=== PATIENT | female | born 1990 | race Caucasian/White ===

== ENCOUNTER 2019-01-25 13:14 | Inpatient (IN) ==
[2019-01-25 14:07] LABS: URINE SOURCE VOIDED
[2019-01-25 14:13] LABS: BILIRUBIN URINE NEGATIVE (NEGATIVE); BLOOD URINE 4+ (NEGATIVE); CLARITY CLEAR (CLEAR); COLOR YELLOW; GLUCOSE URINE NEGATIVE (NEGATIVE); KETONE URINE 2+(Moderate) mg/dL (NEGATIVE); LEUKOCYTES URINE 1+ (NEGATIVE); NITRITE URINE NEGATIVE (NEGATIVE); PH URINE 6.5; PROTEIN URINE 1+(30 mg/dL) mg/dL (NEGATIVE); UROBILINOGEN URINE NORMAL
[2019-01-25] MEDS ORDERED: PEPCID PO ONE (14:33)
[2019-01-25] MEDS ORDERED: KEFZOL 1 GM/D5W 1 GM/50 ML IVPB IV PRN (14:33)
[2019-01-25] MEDS ORDERED: ZOFRAN IV PRN (14:33)
[2019-01-25] MEDS ORDERED: REGLAN PO ONE (14:33)
[2019-01-25] MEDS ORDERED: PEPCID PO PRN (14:33)
[2019-01-25] MEDS ORDERED: AMPICILLIN 2 GM/NS 2 GM/100 ML IVPB IV ONE (14:33)
[2019-01-25] MEDS ORDERED: LR 500 ML IV ONE (14:33)
[2019-01-25] MEDS ORDERED: TYLENOL PO PRN (14:33)
[2019-01-25] MEDS ORDERED: PEPCID IV PRN (14:33)
[2019-01-25] MEDS ORDERED: STADOL IV PRN (14:33)
[2019-01-25] MEDS ORDERED: SODIUM CHLORIDE 0.9% INJ SCH (14:45)
[2019-01-25] MEDS ORDERED: PITOCIN 30 UNITS/NS 30 UNIT/500 ML IV.SOLN IV SCH ×2 (14:45→21:00)
[2019-01-25] MEDS: LR 1,000 ML IV SCH ×2 (15:00→15:52)
[2019-01-25 15:18] LABS: BASO# 0.02 X1000 (0.0-0.2); BASO% 0.2 % (0.0-0.8); EOS# 0.09 X1000 (0.0-0.7); EOS% 0.7 % (0.0-10.0); HEMATOCRIT 36.6 % (37.0-47.0); IMM GRAN# 0.07 X1000 (0.0-0.04); IMM GRAN% 0.5 % (0.0-0.5); LYMPH% 15.4 % (20.5-51.1); MCH 26.6 PG (27-31); MCHC 32.8 g/dL (33-37); MCV 81.2 FL (81-99); MONO# 0.95 X1000 (0.11-0.59); MONO% 7.3 % (1.7-9.3); MPV 10.2 FL (7.4-10.4); NEUT# 9.88 X1000 (1.4-6.5); NEUT% 75.9 % (42.2-75.2); PLT 316 X1000 (130-400); RBC 4.51 XMIL (4.2-5.4); RDW 14.3 % (11.5-14.5); WBC 13.01 X1000 (4.8-10.8)
[2019-01-25] MEDS ORDERED: XYLOCAINE-MPF 1% INJ PRN ×2 (15:47→20:58)
[2019-01-25] MEDS ORDERED: MINERAL OIL PO PRN ×2 (15:47→20:58)
[2019-01-25 15:54] LABS: UR AMPHETAMINES QUAL NONE DETECTED (NONE DETECT); UR BARBITUATES QUAL NONE DETECTED (NONE DETECT); UR BENZODIAZEPIN QUAL NONE DETECTED (NONE DETECT); UR CANNABINOIDS QUAL NONE DETECTED (NONE DETECT); UR COCAINE QUAL NONE DETECTED (NONE DETECT); UR METHADONE QUAL NONE DETECTED (NONE DETECT); UR METHAMPHETAMINE QUAL NONE DETECTED (NONE DETECT); UR OPIATES QUAL NONE DETECTED (NONE DETECT); UR OXYCODONE QUAL NONE DETECTED (NONE DETECT); UR PCP QUAL NONE DETECTED (NONE DETECT); UR PROPOXYPHENE QUAL NONE DETECTED (NONE DETECT); UR TCA QUAL NONE DETECTED (NONE DETECT)
[2019-01-25] MEDS ORDERED: FENTANYL-BUPIV-NS 2 MCG-0.1% 250 ML EPIDURAL SCH (16:00)
[2019-01-25] MEDS: MARCAINE 0.25% PF INJ PRN ×2 (16:25→16:28)
[2019-01-25] MEDS ORDERED: AMPICILLIN 1 GM/NS 1 GM/50 ML IVPB IV SCH (18:33)
--- NOTE | 2019-01-25 19:49 | HISTORY AND PHYSICAL ---
HISTORY OF PRESENT ILLNESS: Mrs. Guerrero is a 28-year-old, G2, P0-0-1-0 at 35 weeks and 1 day, who presents to Labor and Delivery with complaint of PPROM, spontaneous rupture of membranes occurring early this morning. The patient reports good movement. Denies contractions or vaginal bleeding. Upon presentation, the patient was found to be grossly ruptured and in early labor at 4 cm dilated and 100% effaced. MEDICATIONS: Metformin a 1000 mg p.o. b.i.d., vitamins 1 tab p.o. daily, glyburide 5 mg p.o. b.i.d. ALLERGIES: No known drug allergies. PAST MEDICAL HISTORY: Type 2 diabetes. SURGICAL HISTORY: Cyst removal from left wrist and wisdom teeth removal. LIGHT BULB TESTER HISTORY: Menarche at age 14. Denies STD exposure. OBSTETRICAL HISTORY: 2, para 0-0-1-0, one miscarriage. FAMILY HISTORY: Mother with hypertension, hyperlipidemia. Grandfather with hypertension and COPD. Grandmother with diabetes. SOCIAL HISTORY: Denies tobacco, alcohol, or drug use. PHYSICAL EXAMINATION: VITAL SIGNS: Temperature 97.5 degrees Fahrenheit, pulse rate 92, respiration rate 20, blood pressure 122/79, O2 sats 98% on room air. Weight 284 pounds, height 5 feet 7 inches, BMI 44.5 kg/m2. GENERAL: No acute distress. Alert, awake, and oriented x3. CARDIOVASCULAR: Regular rate and rhythm. Positive S1, S2. RESPIRATION: Clear to auscultation bilaterally. ABDOMEN: Gravid, nontender to palpation. EXTREMITIES: No calf tenderness. STERILE VAGINAL EXAM: 7 cm dilated, 100% effaced, -1 station. Electronic monitoring category 1 tracing. [place]: Irregular contractions. LABORATORY: WBC 13.01, hemoglobin 12.0, hematocrit 36.6, platelets 316,000, glucose 84. membranes rupture positive. Urine drug screen negative. RPR nonreactive. ASSESSMENT: Mrs. Guerrero is a 28-year-old, G2, P0-0-1-0 at 35 weeks and 1 day, who presents to Labor and Delivery with premature rupture of membranes in early labor. PLAN: 1. Admit to Labor and Delivery. 2. Obtain routine labor labs. 3. Group B strep unknown in . 4. We will start group B strep prophylaxis with ampicillin IV. 5. Continue with monitoring. 6. Estimated weight 6 pounds. 7. Anticipate vaginal delivery. 8. Strategic Partnership Representative requested at delivery. 9. We will monitor blood sugars post delivery. Discussed 2 hour oral glucose tolerance test 6 weeks to confirm type 2 diabetes. 10. I discussed risks of vaginal delivery which includes, but not limited to, bleeding, lacerations, need for blood transfusion and need for emergent section. Risk of sections discussed in depth which include, but not limited to, bleeding, infection, possibly injury to surrounding organs, postoperative pain, , and disability. [facility]
[2019-01-25] MEDS ORDERED: BENADRYL IV PRN (20:58)
[2019-01-25] MEDS ORDERED: HYDROXYZINE IM PRN (20:58)
[2019-01-25] MEDS ORDERED: M-M-R II VACCINE SUBQ ONE (20:58)
[2019-01-25] MEDS ORDERED: ATARAX PO PRN (20:58)
[2019-01-25] MEDS ORDERED: BENADRYL PO PRN (20:58)
[2019-01-25] MEDS ORDERED: PERI MEDS (DERMOPLAST/NUPERCAINAL/TUCKS) MISC PRN (20:58)
[2019-01-25] MEDS ORDERED: CYTOTEC PO PRN (20:58)
[2019-01-25] MEDS ORDERED: BOOSTRIX VACCINE IM ONE (20:58)
[2019-01-25] MEDS ORDERED: PITOCIN IM PRN (20:58)
[2019-01-25] MEDS ORDERED: AMBIEN PO PRN (20:58)
[2019-01-25] MEDS ORDERED: PITOCIN 20 UNITS/NS 20 UNITS/1,000 ML IV.SOLN IV SCH (21:00)
--- NOTE | 2019-01-25 21:24 | OPERATIVE NOTE ---
PROCEDURE DATE: 01/25/2019 DELIVERY NOTE: At 2025, patient delivered a viable male infant, weighing 6 pounds 3 ounces, with Apgars of 8 and 9 at one and five minutes respectively. delivered in JESSICA presentation. Body delivered without difficulty. The placenta was delivered spontaneously intact with 3-vessel cords. A 1st degree vaginal tear was noted and repaired with 2-0 chromic in a figure-of-8 pattern. 200 mL. Sales Support Rep present for delivery. Mom stable.
[2019-01-25] MEDS: MOTRIN PO PRN (23:45)
[2019-01-25] MEDS: PERICOLACE PO SCH (23:45)
[2019-01-26 06:09] LABS: BASO# 0.03 X1000 (0.0-0.2); BASO% 0.2 % (0.0-0.8); EOS# 0.05 X1000 (0.0-0.7); EOS% 0.3 % (0.0-10.0); HEMATOCRIT 32.6 % (37.0-47.0); HEMOGLOBIN 10.3 g/dL (12.0-16.0); IMM GRAN# 0.05 X1000 (0.0-0.04); IMM GRAN% 0.3 % (0.0-0.5); LYMPH# 2.49 X1000 (1.2-3.4); LYMPH% 16.4 % (20.5-51.1); MCH 25.9 PG (27-31); MCHC 31.6 g/dL (33-37); MCV 81.9 FL (81-99); MONO# 1.62 X1000 (0.11-0.59); MONO% 10.7 % (1.7-9.3); MPV 10.6 FL (7.4-10.4); NEUT# 10.95 X1000 (1.4-6.5); NEUT% 72.1 % (42.2-75.2); PLT 272 X1000 (130-400); RBC 3.98 XMIL (4.2-5.4); RDW 14.1 % (11.5-14.5); WBC 15.19 X1000 (4.8-10.8)
[2019-01-26] MEDS: ZANTAC PO SCH ×2 (09:56→21:03)
[2019-01-26] MEDS: DIABETA PO SCH ×2 (09:56→18:36)
[2019-01-26] MEDS: GLUCOPHAGE PO SCH ×2 (09:56→18:36)
[2019-01-26] MEDS: MOTRIN PO PRN ×2 (12:10→21:06)
[2019-01-26] MEDS: PERICOLACE PO SCH (21:03)
--- NOTE | 2019-01-27 07:41 | OB/GYN PROGRESS NOTE ---
Progress Note OB - . Patient Problems: Current Active Problems Problem Status Onset Intrauterine Acute OB Progress Note: Vital Signs - 24 hr 01/26/19 08:57 01/26/19 14:05 01/26/19 18:38 Temperature 97.1 F L 97.1 F L 97.3 F L Pulse Rate 92 H 81 85 Respiratory Rate 16 18 18 Blood Pressure 124/73 143/75 138/88 O2 Sat by Pulse Oximetry 100 98 100 01/26/19 20:53 01/26/19 23:32 Temperature 96.5 F L 96.8 F L Pulse Rate 89 80 Respiratory Rate 18 18 Blood Pressure 131/75 125/73 O2 Sat by Pulse Oximetry 100 100 PPD#2 s/p - diabetic. Decreased lochia, no abd pain. No SOB, cp or leg pain. Pt wants to stay due to baby not being d/c. VSS AF Gen - pt in no apparent distress, A&O x 3 ABD - soft, NT, ND, FF extreme - No CCE A/p - PPD#2 Pt does not want to go home since baby is staying due to BS issues Diabetes controlled on Metformin and Glyburide.
[2019-01-27] MEDS: DIABETA PO SCH ×2 (08:57→17:28)
[2019-01-27] MEDS: ZANTAC PO SCH ×2 (08:57→20:41)
[2019-01-27] MEDS: GLUCOPHAGE PO SCH ×2 (08:57→17:28)
[2019-01-27] MEDS: MOTRIN PO PRN ×2 (08:58→20:41)
[2019-01-27 17:16] VITALS: BP 141/79
== END 2019-01-27 20:45 | disposition home or self-care (01) | DRG 807 ==
LOC: P.OPLD 13:14 → P.LD 13:16
PROVIDERS: ADMIT Obstetrics & Gynecology; ATTEND Obstetrics & Gynecology